=== PATIENT | female | born 1965 | race American Indian/Alaskan Native ===

== ENCOUNTER 2016-12-12 04:00 | Emergency (ER) | payer MEDICARE ==
[2016-12-12 04:18] VITALS: RESP 14; TEMP 97.8; O2SAT 98
--- NOTE | 2016-12-12 04:34 | C.PDOC ---
History Of Present Illness 51 y/o female presents to ED with complaint of chest pain on dry cough for 3 days. Patient states she was recently hospitalized for similar symptoms and was diagnosed with bronchitis. Patient was just seen and discharged from [facility] for similar complaints. Patient denies drug use. Otherwise, denies fever, chills , headache, diaphoresis, nausea, vomiting, shortness of breath, dyspnea, rercent travel recent leg fracture causing immobility or other complaints. Time Seen by Provider: 12/12/16 04:17 Chief Complaint (Nursing): Chest Pain History Per: Patient History/Exam Limitations: no limitations Onset/Duration Of Symptoms: Persistent Current Symptoms Are (Timing): Still Present Associated Symptoms: denies: Nausea, Dyspnea, Diaphoresis Recent travel outside of the [place]: No Past Medical History Reviewed: Historical Data, Nursing Documentation, Vital Signs Vital Signs: Last Vital Signs Temp 97.8 F 12/12/16 04:11 Pulse 64 12/12/16 04:11 Resp 14 12/12/16 04:11 BP 157/83 H 12/12/16 04:11 Pulse Ox 98 12/12/16 04:33 - Medical History PMH: HTN Family History: States: Unknown Family Hx - Social History Hx Alcohol Use: Yes Hx Substance Use: No - Immunization History Hx Tetanus Toxoid Vaccination: No Hx Influenza Vaccination: No Hx Pneumococcal Vaccination: No Review Of Systems Except As Marked, All Systems Reviewed And Found Negative. Constitutional: Negative for: Fever, Chills Cardiovascular: Positive for: Chest Pain. Negative for: Palpitations Respiratory: Positive for: Cough. Negative for: Shortness of Breath, Sputum, Wheezing Gastrointestinal: Negative for: Nausea, Vomiting, Abdominal Pain Skin: Negative for: Rash Neurological: Negative for: Dizziness Physical Exam - Physical Exam Appears: Non-toxic, No Acute Distress Skin: Normal Color, Warm, Dry, No Diaphoretic Head: Atraumatic, Normacephalic Eye(s): bilateral: Normal Inspection, EOMI Oral Mucosa: Moist Gingiva: No Normal Appearing Chest: Symmetrical, No Tenderness Cardiovascular: Rhythm Regular, No Murmur Respiratory: Normal Breath Sounds, No Rales, No Rhonchi, No Wheezing Gastrointestinal/Abdominal: Soft, No Tenderness, No Guarding, No Rebound Back: Normal Inspection Extremity: Normal ROM, No Pedal Edema, No Calf Tenderness, Capillary Refill (< 2 sec. ) Neurological/Psych: Oriented x3, Normal Speech, Normal Cognition ED Course And Treatment ECG: Interpreted By Me ECG Rhythm: Sinus Rhythm ECG Interpretation: No Acute Changes Interpretation Of ECG: normal axis Rate From EC (bpm) O2 Sat by Pulse Oximetry: 98 (RA) Progress Note: EKG ordered and reviewed. Pt appears well, in NAD, states pain only to aterior chest on coughing only. Pt is requesting pain meds and motrin was given. Pt advised follwo up with PMD and cough meds and motrin given. Return precautions were explained and pt expressed understanding Reassessment Condition: Improved Disposition Counseled Patient/Family Regarding: Diagnosis, Need For Followup, Rx Given - Disposition Referrals: [facility] [Outside] Disposition: HOME/ ROUTINE Disposition Time: 04:48 Condition: STABLE Additional Instructions: Follwo up with your doctor Take all meds Return to ER if worse Prescriptions: Ibuprofen [Motrin] 600 mg PO Q6H #20 tab Benzonatate [Tessalon Perles] 100 mg PO TID #20 sgl Instructions: Upper Respiratory Infection (ED) - Clinical Impression Clinical Impression: Upper respiratory infection, Chest wall pain - PA / GLOBAL PROJECT MANAGER / Resident Statement MD/DO has reviewed & agrees with the documentation as recorded. - Scribe Statement The provider has reviewed the documentation as recorded by the Amandeep Salcedo Provider Scribe Attestation: All medical record entries made by the Scribe were at my direction and personally dictated by me. I have reviewed the chart and agree that the record accurately reflects my personal performance of the history, physical exam, medical decision making, and the department course for this patient. I have also personally directed, reviewed, and agree with the discharge instructions and disposition.
[2016-12-12 05:50] VITALS: BP 138/78; PULSE 65
== END 2016-12-12 06:18 | disposition home or self-care (01) ==
LOC: C.ER 04:00
DX: J06.9 Acute upper respiratory infection, unspecified (principal); R07.89 Other chest pain

== ENCOUNTER 2017-01-30 23:49 | Emergency (ER) | payer MEDICARE ==
[2017-01-30 23:50] VITALS: BMI 34.0
--- NOTE | 2017-01-31 00:50 | C.PDOC ---
History Of Present Illness Patient is brought to the ED by ambulance requesting a place to sleep. She admits to drinking alcohol prior to arrival. Patient denies fever, chills, nausea, or vomiting.. Eating cookies Time Seen by Provider: 01/31/17 00:50 Chief Complaint (Nursing): Headache History Per: Patient History/Exam Limitations: intoxication Onset/Duration Of Symptoms: Other Severity: None Pain Scale Rating Of: 0 Recent travel outside of the [place]: No Past Medical History Reviewed: Historical Data, Nursing Documentation, Vital Signs Vital Signs: Last Vital Signs Temp 97.7 F 01/30/17 23:59 Pulse 87 01/30/17 23:59 Resp 16 01/30/17 23:59 BP 161/96 H 01/30/17 23:59 Pulse Ox 96 01/31/17 04:43 - Medical History PMH: HTN, Hypercholesterolemia Family History: States: Unknown Family Hx - Social History Hx Alcohol Use: Yes Hx Substance Use: No - Immunization History Hx Tetanus Toxoid Vaccination: No Hx Influenza Vaccination: No Hx Pneumococcal Vaccination: No Review Of Systems Constitutional: Negative for: Fever, Chills Gastrointestinal: Negative for: Nausea, Vomiting Physical Exam - Physical Exam Appears: Non-toxic, No Acute Distress, Other (intoxicated) Skin: Warm, Dry Head: Atraumatic, Normacephalic Eye(s): bilateral: EOMI Oral Mucosa: Moist Neck: Supple Chest: Symmetrical Cardiovascular: Rhythm Regular Respiratory: No Rales, No Rhonchi, No Wheezing Extremity: Bilateral: Atraumatic Neurological/Psych: Oriented x3 ED Course And Treatment O2 Sat by Pulse Oximetry: 96 (room air) Pulse Ox Interpretation: Normal Reevaluation Time: 05:37 Reassessment Condition: Improved ED OBSERVATION Discharge: Yes - Progress Note Progress Note: 01/31/17 00:45 vitals stable 01/31/17 04:43 no complaints Disposition Counseled Patient/Family Regarding: Studies Performed, Diagnosis, Need For Followup - Disposition Referrals: [facility] [Outside] Disposition: HOME/ ROUTINE Disposition Time: 00:50 Condition: FAIR Instructions: Alcohol Intoxication (DC) - Clinical Impression Clinical Impression: Alcohol intoxication - Scribe Statement The provider has reviewed the documentation as recorded by the Scribe Gudelia Falcon Provider Attestation: All medical record entries made by the Scribe were at my direction and personally dictated by me. I have reviewed the chart and agree that the record accurately reflects my personal performance of the history, physical exam, medical decision making, and the department course for this patient. I have also personally directed, reviewed, and agree with the discharge instructions and disposition.
[2017-01-31 05:47] VITALS: BP 165/95; PULSE 84; RESP 18; TEMP 97.9; O2SAT 99
== END 2017-01-31 06:06 | disposition home or self-care (01) ==
LOC: C.ER 23:49
DX: F10.120 Alcohol abuse with intoxication, uncomplicated (principal); Y90.9 Presence of alcohol in blood, level not specified

== ENCOUNTER 2017-07-07 00:42 | Emergency (ER) | payer MEDICARE ==
[2017-07-07 00:42] VITALS: BMI 38.0
--- NOTE | 2017-07-07 00:58 | C.PDOC ---
History Of Present Illness 52 year old female, whose past medical history includes hypertension, alcohol abuse, cocaine abuse, and tobacco abuse, presents to the ED for evaluation of chest pain which began around 1 hour prior to arrival. Patient is familiar to the ED and has had many prior visits for chest pain. Patient denies any other associated symptoms at this time. CP X 1 HR. NO OTHER ASOSC SX. past medical history includes hypertension, alcohol abuse, cocaine abuse, and tobacco abuse. MULT PRIOR ER VISITS FOR CP EXMA NEG Time Seen by Provider: 07/07/17 00:56 Chief Complaint (Nursing): Chest Pain History Per: Patient History/Exam Limitations: no limitations Onset/Duration Of Symptoms: Hrs Current Symptoms Are (Timing): Still Present Quality: "Pain" Associated Symptoms: denies: Nausea, Dyspnea, Diaphoresis, Syncope Additional History Per: Patient Past Medical History Reviewed: Historical Data, Nursing Documentation, Vital Signs Vital Signs: Last Vital Signs Temp 97.5 F L 07/07/17 04:32 Pulse 80 07/07/17 04:32 Resp 16 07/07/17 04:32 BP 131/82 07/07/17 04:32 Pulse Ox 97 07/07/17 04:32 - Medical History PMH: Anxiety, Bronchitis, Depression, HTN, Hypercholesterolemia, Peripheral Edema (ble +1 pitting) Denies: Chronic Kidney Disease Surgical History: No Surg Hx Family History: States: Unknown Family Hx - Social History Hx Alcohol Use: Yes (beer last night) Hx Substance Use: Yes (clean 18 yrs as per pt cocaine) - Immunization History Hx Tetanus Toxoid Vaccination: Yes Hx Influenza Vaccination: No Hx Pneumococcal Vaccination: No Review Of Systems Constitutional: Negative for: Fever, Chills Cardiovascular: Positive for: Chest Pain Respiratory: Negative for: Cough, Shortness of Breath Gastrointestinal: Negative for: Nausea, Vomiting Neurological: Negative for: Weakness, Numbness Physical Exam - Physical Exam Appears: Non-toxic, No Acute Distress, Other (comfortable, eating sandwhich ) Skin: Normal Color, Warm, Dry Head: Atraumatic, Normacephalic Eye(s): bilateral: Normal Inspection Oral Mucosa: Moist Neck: Supple Chest: Symmetrical, No Deformity, No Tenderness Cardiovascular: Rhythm Regular, No Murmur Respiratory: Normal Breath Sounds, No Rales, No Rhonchi, No Wheezing Extremity: Normal ROM, Capillary Refill (less than 2 seconds ) Neurological/Psych: Oriented x3, Normal Speech, Normal Cognition Gait: Steady ED Course And Treatment - Laboratory Results Result Diagrams: 07/07/17 01:58 07/07/17 01:58 ECG: Interpreted By Me ECG Rhythm: Sinus Rhythm ECG Interpretation: Normal Rate From EC O2 Sat by Pulse Oximetry: 99 Pulse Ox Interpretation: Normal - Radiology CXR: Interpreted by Me CXR Interpretation: Yes: No Acute Disease Progress Note: Labs, EKG, and CXR ordered and reviewed. Progress - Re-Evaluation Re-evaluation Note: 07/07/17 05:50 NO RECUR CP APEPARS COMFORTABLE - Data Reviewed Data Reviewed: Lab, Diagnostic imaging, EKG, Old records Disposition Counseled Patient/Family Regarding: Studies Performed, Diagnosis, Need For Followup - Disposition Referrals: [facility] [Outside] [facility] [Outside] Disposition: HOME/ ROUTINE Disposition Time: 05:50 Condition: GOOD Instructions: Chest Pain (ED) Forms: [employer] ([place]wana) - Clinical Impression Clinical Impression: Chest pain - Scribe Statement The provider has reviewed the documentation as recorded by the Scribe (Livier Falcon) Provider Attestation: All medical record entries made by the Scribe were at my direction and personally dictated by me. I have reviewed the chart and agree that the record accurately reflects my personal performance of the history, physical exam, medical decision making, and the department course for this patient. I have also personally directed, reviewed, and agree with the discharge instructions and disposition.
[2017-07-07 02:08] LABS: BASO % 0.9 % (0.0-2.0); EOS # 0.1 K/uL (0.0-0.7); EOS % 2.7 % (0.0-4.0); HEMATOCRIT 36.3 % (34.0-47.0); LYMPH # 2.4 K/uL (1.0-4.3); LYMPH % 51.1 % (20.0-40.0); MEAN CELL VOLUME 100.4 fL (81.0-99.0); MEAN CORPUSCULAR HGB CONC 34.9 g/dL (33.0-37.0); MEAN PLATELET VOLUME 7.5 fL (7.2-11.7); MONO # 0.4 K/uL (0.0-0.8); MONO % 9.2 % (0.0-10.0); RED CELL DISTRIBUTION WIDTH 13.9 % (11.5-14.5); WHITE BLOOD COUNT 4.7 K/uL (4.8-10.8)
[2017-07-07 02:16] LABS: CHLORIDE 106 mmol/L (98-107); POTASSIUM 3.6 mmol/L (3.6-5.2); SODIUM 141 mmol/L (132-148)
[2017-07-07 02:19] LABS: BLOOD UREA NITROGEN 16 mg/dL (7-17); CARBON DIOXIDE 27 mmol/L (22-30); GFR AFRICAN-AMERICAN > 60
[2017-07-07 02:20] LABS: CALCIUM 9.3 mg/dl (8.6-10.4); GLUCOSE,RANDOM 78 mg/dL (65-105)
[2017-07-07 04:39] VITALS: RESP 16
[2017-07-07 06:02] VITALS: BP 142/78; PULSE 75; TEMP 97.9; O2SAT 97
--- NOTE | 2017-07-07 08:22 | RAD ---
HISTORY: chest pain COMPARISON: Chest radiographs 06/29/2015. TECHNIQUE: Single frontal portable chest. FINDINGS: LUNGS: Diminished inspiratory effort is evident however there is no acute infiltrate appreciated bilaterally. PLEURA: No significant pleural effusion identified. No pneumothorax apparent. CARDIOVASCULAR: Normal. OSSEOUS STRUCTURES: No significant abnormalities. VISUALIZED UPPER ABDOMEN: Normal. OTHER FINDINGS: None. IMPRESSION: Diminished inspiratory volume. No acute cardiopulmonary disease identified in the interval otherwise.
--- NOTE | 2017-07-08 14:14 | CARD ---
APPROVED REPORT EKG Measurement Heart [id number] <Conclusion> Normal sinus rhythm Possible Left atrial enlargement Nonspecific T wave abnormality Prolonged QT Abnormal ECG
== END 2017-07-07 06:40 | disposition home or self-care (01) ==
LOC: C.ER 00:42
DX: R07.9 Chest pain, unspecified (principal)